=== PATIENT | female | born 1955 | race Hispanic/Latino ===

== ENCOUNTER 2017-10-29 08:51 | Outpatient (CLI) | payer OTHER ==
[2017-10-29 10:00] LABS: Blood Urea Nitrogen 7 mg/dL (7-17)
--- NOTE | 2017-10-29 14:59 | Magnetic Resonance Report ---
FINAL REPORT EXAM: MR ABDOMEN WO/W CON HISTORY: HEPATOMEGALY, LFT ELEVATION TECHNIQUE: Fat sensitive and fluid sensitive MR sequences of the abdomen were performed in axial and coronal planes. Pre and post-contrast imaging performed. 15 cc MultiHance IV contrast was administered. PRIORS: CT abdomen and pelvis of 08/27/2017 FINDINGS: There is trace ascites superficial to the liver, significantly less as compared to CT of 08/27/2017. There is mild hepatomegaly. There is a tiny cyst in the right hepatic lobe. No other focal liver lesion seen. There is mild splenomegaly. The pancreas, adrenal glands and kidneys demonstrate no significant abnormality. There is dependent cholelithiasis and/or sludge in the gallbladder. There is no evidence of biliary ductal dilatation. There is no abdominal aortic aneurysm. There is minimal pericardial fluid. IMPRESSION: Gallbladder sludge and/or cholelithiasis. Trace ascites, less as compared to prior CT from 08/27/2017. Mild hepatosplenomegaly with recanalized umbilical vein. Minimal pericardial effusion.
--- NOTE | 2017-11-01 08:13 | Mammography Report ---
BILATERAL DIGITAL SCREENING MAMMOGRAM with CAD : 10/29/17 08:51:00 CLINICAL: Routine screening. COMPARISON:None available. FINDINGS: The breasts are heterogeneously dense, which may obscure small masses.Right calcifications with benign morphology. No mass, architectural distortion or suspicious calcifications. IMPRESSION: No mammographic evidence of malignancy. BI-RADS CATEGORY: 2 -- Benign RECOMMENDATION: Routine mammographic screening in one year. COMMENT: Patient follow-up letters are generated by our [employer] application.
== END 2017-10-29 08:52 | disposition home or self-care (01) ==
LOC: MAMMO 08:51
PROVIDERS: ATTEND Internal Medicine Gastroenterology
DX: Z12.31 Encounter for screening mammogram for malignant neoplasm of breast (principal); K76.89 Other specified diseases of liver; I31.3 Pericardial effusion (noninflammatory); R79.89 Other specified abnormal findings of blood chemistry; R16.2 Hepatomegaly with splenomegaly, not elsewhere classified
CPT/HCPCS: 36415; 74183; 77067; 82565; 84520; A9577